=== PATIENT | female | born 1960 | race Asian ===

== ENCOUNTER 2019-07-04 09:16 | Inpatient (IN) | payer MEDICAID ==
[2019-07-04 12:15] LABS: ALANINE AMINOTRANSFERASE 52 IU/L (13-69); ALBUMIN 4.4 g/dl (3.3-4.9); ALKALINE PHOSPHATASE 59 IU/L (42-121); ANION GAP 9 (5-13); ASPARTATE AMINO TRANSFERASE 45 IU/L (15-46); BILIRUBIN,INDIRECT 0.8 mg/dl (0-1.1); BILIRUBIN,TOTAL 0.8 mg/dl (0.2-1.3); CALCIUM 9.6 mg/dl (8.4-10.2); CARBON DIOXIDE 23 mmol/L (21-31); CHLORIDE 109 mmol/L (97-110); CREATININE 0.78 mg/dl (0.44-1.00); Estimated GFR > 60 mL/min (>60); GLUCOSE 101 mg/dl (70-220); POTASSIUM 4.5 mmol/L (3.5-5.1); SODIUM 141 mmol/L (135-144); TOTAL PROTEIN 8.8 g/dl (6.1-8.1)
[2019-07-04 12:23] LABS: BLOOD UREA NITROGEN 22 mg/dl (7-20)
[2019-07-04] MEDS ORDERED: BUPIVACAINE 0.5%/EPI (SDV) 10 ML INJ (13:02)
[2019-07-04] MEDS ORDERED: SUCCINYLCHOLINE CHLORIDE 100 MG/5 ML SYG IV (13:14)
[2019-07-04] MEDS ORDERED: PROPOFOL 200 MG INJ (13:14)
[2019-07-04] MEDS ORDERED: LIDOCAINE 2% (SDV) 5 ML INJ (13:14)
[2019-07-04] MEDS ORDERED: FENTAnyl 50 MCG/ML VIAL ×2 (13:14→14:08)
[2019-07-04] MEDS ORDERED: CEFAZOLIN 1 GM INJ (13:14)
[2019-07-04] MEDS ORDERED: ROCURONIUM 50 MG INJ (13:14)
[2019-07-04] MEDS ORDERED: MIDAZOLAM 1 MG/ML 2 ML INJ (13:15)
[2019-07-04] MEDS ORDERED: ONDANSETRON 4 MG INJ (13:57)
[2019-07-04] MEDS ORDERED: DEXAMETHASONE 4 MG/ML 5 ML INJ (14:01)
[2019-07-04] MEDS ORDERED: EPHEDrine 25 MG/5 ML SYG (14:10)
[2019-07-04] MEDS ORDERED: ONDANSETRON 4 MG INJ IV ×2 (14:30→15:30)
[2019-07-04] MEDS ORDERED: MEPERIDINE 25 MG INJ IV (14:30)
[2019-07-04] MEDS ORDERED: EPHEDrine 25 MG/5 ML SYG IV (14:30)
[2019-07-04] MEDS ORDERED: hydrALAzine 20 MG INJ IV (14:30)
[2019-07-04] MEDS ORDERED: ALBUTEROL 0.083% (NEB) 2.5 MG/3 ML AMP HHN (14:30)
[2019-07-04] MEDS ORDERED: DIPHENHYDRAMINE 50 MG INJ IV (14:30)
[2019-07-04] MEDS ORDERED: OXYCODONE/ACETAMINOPHEN (5/325) TAB PO ×2 (14:30)
[2019-07-04] MEDS ORDERED: HYDROmorphONE 1 MG/5 ML IV SYRINGE IV ×3 (14:30)
[2019-07-04] MEDS ORDERED: LABETALOL HCL 20MG INJ IV (14:30)
[2019-07-04] MEDS ORDERED: IPRATROPIUM (NEB) 0.5 MG/2.5 ML AMP HHN (14:30)
[2019-07-04] MEDS ORDERED: FENTAnyl 50 MCG/ML VIAL IV ×3 (14:30)
[2019-07-04] MEDS ORDERED: morphine 2 MG INJ IV (15:30)
[2019-07-04] MEDS ORDERED: HYDROCODONE/APAP (5/325) TAB PO (16:30)
[2019-07-04] MEDS: ACETAMINOPHEN 1000MG/100ML IV 100 ML IVPB (16:36)
[2019-07-04] MEDS: D5W-0.45 NACL + KCL 20 MEQ 1,000 ML IV (17:37)
[2019-07-04] MEDS: SOD CHLORIDE 0.9% 1,000 ML IV (17:49)
[2019-07-05] MEDS: SOD CHLORIDE 0.9% 1,000 ML IV ×2 (00:50→13:25)
[2019-07-05] MEDS: D5W-0.45 NACL + KCL 20 MEQ 1,000 ML IV ×3 (02:26→15:08)
[2019-07-05] MEDS: ACETAMINOPHEN 1000MG/100ML IV 100 ML IVPB ×2 (02:37→14:17)
[2019-07-05 05:00] LABS: ADD MAN DIFF? NO
[2019-07-05 05:08] LABS: WHITE BLOOD COUNT 11.2 10^3/ul (4.8-10.8)
[2019-07-05 05:08] LABS: BASOPHILS % 0.4 % (0.0-2.0); EOSINOPHILS % 0.2 % (0.0-7.0); HEMATOCRIT 32.4 % (37.0-47.0); HEMOGLOBIN 11.4 g/dl (12.0-16.0); LYMPHOCYTES # 1.6 10^3/ul (0.8-2.9); LYMPHOCYTES % 14.2 % (15.0-51.0); MEAN CORPUSCULAR HEMOGLOBIN 26.9 pg (29.0-33.0); MEAN CORPUSCULAR HGB CONC 35.2 g/dl (32.0-37.0); MEAN CORPUSCULAR VOLUME 76.4 fl (82.0-101.0); MEAN PLATELET VOLUME 10.3 fl (7.4-10.4); MONOCYTE # 0.8 10^3/ul (0.3-0.9); MONOCYTES % 6.9 % (0.0-11.0); NEUTROPHIL # 8.7 10^3/ul (1.6-7.5); PLATELET COUNT 324 10^3/UL (140-415); RED BLOOD COUNT 4.24 10^6/ul (4.20-5.40); RED CELL DISTRIBUTION WIDTH 15.5 % (11.5-14.5)
[2019-07-05] MEDS: AMLODIPINE 10 MG TAB PO (08:13)
== END 2019-07-05 16:10 | disposition home or self-care (01) | DRG 830 ==
LOC: REC 09:16 → MS1 16:25
PROC: 0HTU0ZZ Resection of Left Breast, Open Approach (ICD-10-PCS; principal; 2019-07-04 12:30)
PROC: 07B60ZZ Excision of Left Axillary Lymphatic, Open Approach (ICD-10-PCS; 2019-07-04 12:30)
DX: C79.89 Secondary malignant neoplasm of other specified sites (principal); I10 Essential (primary) hypertension
CPT/HCPCS: 80053; 85025; 88309